=== PATIENT | female | born 1955 | race Caucasian/White ===

== ENCOUNTER 2018-08-23 08:27 | Day surgery (SDC) | payer MEDICAID ==
[~2018-08-23] VITALS: Ht 162.6 cm; Wt 72.4 kg
[2018-08-23 09:02] VITALS: BP 116/82
[2018-08-23] MEDS ORDERED: TRAM50TA2 PO (09:19)
[2018-08-23] MEDS ORDERED: ALPR0.25 PO (09:19)
[2018-08-23] MEDS ORDERED: DIPH1TAB PO (09:19)
[2018-08-23] MEDS ORDERED: FENTANYL PF 100 MCG/2ML ONE (09:20)
[2018-08-23] MEDS ORDERED: MIDAZOLAM 1 MG/ML, 2ML ONE (09:20)
[2018-08-23] MEDS ORDERED: PROPOFOL 50 ML ONE (09:21)
[2018-08-23] MEDS ORDERED: OXYcodone 5 MG/5 ML ORAL.SOL UDC ONE (11:19)
[2018-08-23] MEDS ORDERED: OXYcodone 5 MG/5 ML ORAL.SOL UDC PO PRN (11:30)
[2018-08-23] MEDS ORDERED: HYDROmorphone 2 MG/ML, 1ML IVPush PRN (11:30)
[2018-08-23] MEDS ORDERED: LORazepam 2 MG/ML, 1ML IVPush PRN (11:30)
[2018-08-23] MEDS ORDERED: MEPERIDINE/PF 25MG/0.5ML IVPush PRN (11:30)
[2018-08-23] MEDS ORDERED: FENTANYL PF 100 MCG/2ML IV PRN (11:30)
[2018-08-23] MEDS ORDERED: HALOPERIDOL 5 MG/ML IV PRN (11:30)
[2018-08-23] MEDS ORDERED: ONDANSETRON 2MG/ML, 2ML IV PRN (11:30)
[2018-08-23] MEDS ORDERED: LABETALOL 5MG/ML, 20ML IV PRN (11:30)
[2018-08-23] MEDS ORDERED: hydrALAzine 20 MG/ML, 1ML IV PRN (11:30)
== END 2018-08-23 13:25 | disposition home or self-care (01) ==
LOC: OUT 08:27
PROVIDERS: ATTEND Internal Medicine Gastroenterology
DX: K44.9 Diaphragmatic hernia without obstruction or gangrene (principal); K22.2 Esophageal obstruction; G89.29 Other chronic pain; Z86.73 Personal history of transient ischemic attack (TIA), and cerebral infarction without residual deficits; Z88.1 Allergy status to other antibiotic agents; Z88.8 Allergy status to other drugs, medicaments and biological substances
CPT/HCPCS: 43237; 43239; 88305; 93005; J2250; J2704; J3010